=== PATIENT | female | born 2005 | race Caucasian/White ===

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

== ENCOUNTER → 2023-06-09 | Outpatient (CLI) | payer BC ==
--- NOTE | 2023-06-09 11:55 | Diagnostic Imaging Report ---
INDICATION: Pain and swelling for the last 3 days. EXAMINATION: Right knee 06/09/2023 FINDINGS: 3 views of the knee. There are no acute fractures or dislocations. The joint spaces appear maintained. No significant joint effusion. IMPRESSION: Unremarkable knee. Dictated by: Dictated on workstation # [id number]
== END ==
LOC: ORTHO 09:40
PROVIDERS: ATTEND Orthopaedic Surgery
DX: M22.2X1 Patellofemoral disorders, right knee (principal)
CPT/HCPCS: 73562; 99203